=== PATIENT | female | born 1990 | race African-American/Black ===

== ENCOUNTER 2018-08-05 15:50 | Inpatient (IN) ==
--- NOTE | 2018-08-05 16:58 | P.HPOB ---
History of Present Illness Primary Care Physician: NOT REQUIRED Chief Complaint: SROM History of Present Illness: pt is with previous CS 9 y ago with SROM at 1500 today, clear fluids, irreg contractions Weeks Gestation:: 38 Para: 1 : 4 Review of Systems All other systems reviewed negative except as stated in HPI [facility] - Medical History Medical History: Medical History (Last Updated 08/05/18 @ 16:50 by Chacho Díaz MD) delivery delivered No significant active problems - Social History I have reviewed the patient's Social History: Yes - Tobacco History Second Hand Smoke Exposure: No Tobacco Use In Past 30 Days: No Smoking Status: Never smoker - Alcohol History How Often Do You Have a Drink Containing Alcohol: Never - Substance Use History Substance History: No History of Abuse - Travel History History of Recent Travel: No Recent Travel in the [facility] Within the Last 8 Weeks: No Recent Travel Out of the Country Within the Last 8 Weeks: No Medications and Allergies Allergies Allergy/AdvReac Type Severity Reaction Status Date / Time No Known Allergies Allergy Unknown none Uncoded 08/05/18 16:38 Home Medications Medication Instructions Recorded Confirmed Type [id number] acid 1 tab PO DAILY 08/05/18 08/05/18 History [PreNata] Exam Vital signs: Vital Signs 08/05/18 16:13 08/05/18 16:14 Temperature 98.6 F Pulse Rate 90 Respiratory Rate 18 Blood Pressure 123/66 Intake & Output 08/04/18 08/05/18 08/05/18 18:59 06:59 18:59 Weight 77.111 kg Narrative: GENERAL: Well-nourished, well-developed patient. SKIN: Warm and dry. HEAD: Normocephalic and atraumatic. EYES: No scleral icterus. No injection or drainage. ENT: No nasal drainage noted. Mucous membranes pink. Airway patent. NECK: Supple, trachea midline. No JVD. CARDIOVASCULAR: Regular rate and rhythm without murmurs, gallops, or rubs. RESPIRATORY: Breath sounds equal bilaterally. No accessory muscle use. BREASTS: Bilateral exam showed no masses , no retractions, no nipple discharge. ABDOMEN/GI: Abdomen soft, non-tender, bowel sounds present, no rebound, no guarding Gravid to [39-] weeks size Fundal Height: [39-] GENITOURINARY: External Genitalia: intact and normal in appearance BUS glands: [wnl] Cervix: [ft,25%,-3] Dilatation: [-] Effacement: [-] Station: [-] Presentation: [vx] Membranes: ruptured clear] Uterine Contractions: [irreg] FHT's: Category: [1] Baseline: [135] Reactive: [y] Variability: [moderate] Decels: [none] EXTREMITIES: No cyanosis or edema. BACK: Nontender without obvious deformity. No CVA tenderness. NEUROLOGICAL: Awake and alert. Motor and sensory grossly within normal limits. Five out of 5 muscle strength in all muscle groups. Normal speech. Assessment and Plan - Diagnosis (1) 38 weeks gestation of Code(s): Z3A.38 - 38 weeks gestation of Status: Acute (2) Previous section Code(s): Z98.891 - History of uterine scar from previous surgery Status: Acute - Plan as per dr colbert and pt wish anticipate gbs neg Discharge Plan - Discharge Disposition Patient Disposition: 30 Still Patient - Physicians Team ED Provider: Chacho Díaz Primary Care Provider: NOT REQUIRED, - Rxs /Orders / Referrals /Forms Prescriptions: No Action [id number] acid [PreNata] 29 mg iron- 1 mg Tablet,Chewable 1 tab PO DAILY - Discharge Instructions Print Language: Thai
[2018-08-05] MEDS ORDERED: Oxytocin 30 Units/500ml Premix 30 UNITS/500 ML BAG IV.SIG ONE (16:59)
[2018-08-05] MEDS ORDERED: Naloxone Inj 0.4 MG/ML Vial IV.PUSH PRN (16:59)
[2018-08-05] MEDS ORDERED: Sodium Chlor 0.9% Inj 500 ML IV.SIG PRN (16:59)
[2018-08-05] MEDS ORDERED: fentaNYL Citrate Inj 100 MCG/2 ML Ampul IV.PUSH PRN ×2 (16:59)
[2018-08-05] MEDS ORDERED: Sod Chloride 0.9% Inj 1,000 ML IV.CONT PRN (16:59)
[2018-08-05] MEDS ORDERED: Citric Acid/Sodium Citrate Liq 30 ML UDC PO SCH (17:00)
[2018-08-05 18:27] LABS: Baso % (Auto) 0.3 % (0.0-2.0); Eos # (Auto) 0.1 th/mm3 (0.0-0.4); Eos % (Auto) 0.6 % (0.0-4.0); Hematocrit 30.6 % (35.0-46.0); Hemoglobin 10.1 gm/dL (11.6-15.3); Lymph # (Auto) 1.4 th/mm3 (1.0-4.8); Lymph % (Auto) 13.1 % (9.0-44.0); Mean Corpuscular Hemoglobin 29.8 pg (27.0-34.0); Mean Corpuscular Volume 90.1 fL (80.0-100.0); Mean Platelet Volume 10.9 fL (7.0-11.0); Mono # (Auto) 1.1 th/mm3 (0.0-0.9); Mono % (Auto) 9.6 % (0.0-8.0); Neut # (Auto) 8.3 th/mm3 (1.8-7.7); Neut % (Auto) 76.4 % (16.0-70.0); Platelet Count 138 th/mm3 (150-450); Red Blood Count 3.39 mil/mm3 (4.00-5.30); Red Cell Distribution Width 13.8 % (11.6-17.2); White Blood Count 10.9 th/mm3 (4.0-11.0)
[2018-08-05 18:35] LABS: Amphetamine Urine With Conf Neg (Neg); Benzodiazepine Urine With Conf Neg (Neg)
[2018-08-05 18:38] LABS: Bacteria,Urine Occasional /hpf; Bilirubin,Urine Negative (Negative); Clarity,Urine Hazy (Clear); Color,Urine Yellow (Yellw/Straw); Glucose,Urine (UA) Negative (Negative); Leukocyte Esterase,Urine Moderate (Negative); Mucus,Urine Few /lpf (Occasional); Nitrite,Urine Negative (Negative); Specific Gravity,Urine 1.011 (1.002-1.035); Squamous Epithelial Cell,Urine 5 /hpf (0-5)
[2018-08-06] MEDS ORDERED: Oxytocin 30 Units/500ml Premix 30 UNITS/500 ML BAG IV.SIG PRN ×2 (08:05→22:15)
--- NOTE | 2018-08-06 08:05 | P.OBLABOR ---
Subjective Interval history: Frustrated that nothing occurred during the night and frightened by wording of consent. Having some moderate contractions but widely spaced. No fever, chills. GFM No bleeding. still leaking slight amount Objective Vital Signs: Vital Signs - 8 hr 08/06/18 00:21 08/06/18 02:30 08/06/18 04:54 Temperature 98.8 F 98.6 F 98.7 F Pulse Rate 87 89 Respiratory Rate 15 15 Blood Pressure 101/48 L 124/56 L 08/06/18 06:51 08/06/18 07:17 Temperature 99.0 F 98.5 F Pulse Rate 91 H Respiratory Rate 16 Blood Pressure 113/59 L Objective: EFW 7 1/2 pounds previously dilated to 5 cm with first section vertex 3/80/-2 forewater rupture pelvis clinically adequate poor abdominal muscle tone allows to hang over symphysis and would leave in bed with peanut no edema Weeks Gestation: 38 Patient Started Active Labor: No Medical Induction of Labor: No Artificial Rupture of Membrane: No Assessment and Plan - Diagnosis (1) SROM (spontaneous rupture of membranes) Status: Acute (2) 38 weeks gestation of Code(s): Z3A.38 - 38 weeks gestation of Status: Acute (3) Previous section Code(s): Z98.891 - History of uterine scar from previous surgery Status: Acute - Plan begin pitocin encourage epidural anticipate unless or maternal condition or preference determine otherwise reviewed risks, alternatives, benefits and her ability to change her mind.
[2018-08-06] MEDS: Prenatal Vit/Ca/Iron/Folic Acid Tablet PO SCH (10:05)
[2018-08-06] MEDS ORDERED: fentaNYL 2MCG-Bupiv 0.125% Epi 150 ML EPIDURAL ONE (10:18)
[2018-08-06] MEDS ORDERED: Lidocaine PF 1% Inj 5 ML Vial ONE (10:40)
[2018-08-06] MEDS ORDERED: Lidocaaine 1.5%/Epinephrine 1:200,000 PF Inj 5 ML Amp ONE (10:40)
[2018-08-06] MEDS ORDERED: Acetaminophen 325 MG Tablet PO PRN ×2 (13:41→17:14)
--- NOTE | 2018-08-06 13:44 | P.OBLABOR ---
Subjective Interval history: laying on left side with peanut ball in place on pitocin and has epidural no pain comfortable Objective Vital Signs: Vital Signs - 8 hr 08/06/18 06:51 08/06/18 07:17 08/06/18 09:30 Temperature 99.0 F 98.5 F 98.7 F Pulse Rate 91 H Respiratory Rate 16 Blood Pressure 113/59 L 08/06/18 09:32 08/06/18 10:55 08/06/18 10:59 Temperature Pulse Rate 88 86 87 Respiratory Rate 18 Blood Pressure 109/53 L 105/57 L 107/70 08/06/18 11:18 08/06/18 11:25 08/06/18 11:26 Temperature Pulse Rate 84 78 88 Respiratory Rate 18 Blood Pressure 102/54 L 113/63 96/70 L 08/06/18 11:40 08/06/18 11:45 08/06/18 11:57 Temperature Pulse Rate 94 H 93 H Respiratory Rate 20 Blood Pressure 118/61 08/06/18 12:00 08/06/18 12:01 08/06/18 12:15 Temperature 99.2 F Pulse Rate 86 85 Respiratory Rate Blood Pressure 112/63 117/64 08/06/18 12:28 08/06/18 12:30 08/06/18 12:46 Temperature Pulse Rate 89 163 H Respiratory Rate 20 Blood Pressure 113/65 105/52 L 08/06/18 13:00 08/06/18 13:16 08/06/18 13:30 Temperature 101.1 F H Pulse Rate 91 H 95 H Respiratory Rate 18 Blood Pressure 100/50 L 98/50 L Objective: 8/80/-2 temp 101.4 strip categoy 2 with mild tchycardia and decreased BTBV Assessment and Plan - Diagnosis (1) SROM (spontaneous rupture of membranes) Status: Acute (2) 38 weeks gestation of Code(s): Z3A.38 - 38 weeks gestation of Status: Acute (3) Previous section Code(s): Z98.891 - History of uterine scar from previous surgery Status: Acute - Plan begin pitocin encourage epidural anticipate unless or maternal condition or preference determine otherwise reviewed risks, alternatives, benefits and her ability to change her mind. 08/06/18 at 13:45 ancef and tylenol continue and anticipate after TOLAC
[2018-08-06] MEDS ORDERED: ceFAZolin 2 GM Premix Inj 2 GM/50 ML PIGGYBACK IV.SIG ONE (14:00)
[2018-08-06] MEDS ORDERED: fentaNYL 2MCG-Bupiv 0.125% Epi 150 ML EPIDURAL PRN (14:56)
[2018-08-06] MEDS ORDERED: fentaNYL Citrate Inj 100 MCG/2 ML Ampul EPIDURAL ONE (14:56)
--- NOTE | 2018-08-06 15:33 | P.OBLABOR ---
Subjective Interval history: Patient seen and examined at bedside. Comfortable. Denies any chills. Denies any pain. Antibiotics hung one hour ago. Last Temp 100.4 taken at 15:25. Previous Temp: 102.7 F taken at 14:42. Objective Vital Signs: Vital Signs - 8 hr 08/06/18 09:30 08/06/18 09:32 08/06/18 10:55 Temperature 98.7 F Pulse Rate 88 86 Respiratory Rate 18 Blood Pressure 109/53 L 105/57 L 08/06/18 10:59 08/06/18 11:18 08/06/18 11:25 Temperature Pulse Rate 87 84 78 Respiratory Rate 18 Blood Pressure 107/70 102/54 L 113/63 08/06/18 11:26 08/06/18 11:40 08/06/18 11:45 Temperature Pulse Rate 88 94 H 93 H Respiratory Rate Blood Pressure 96/70 L 118/61 08/06/18 11:57 08/06/18 12:00 08/06/18 12:01 Temperature 99.2 F Pulse Rate 86 Respiratory Rate 20 Blood Pressure 112/63 08/06/18 12:15 08/06/18 12:28 08/06/18 12:30 Temperature Pulse Rate 85 89 Respiratory Rate 20 Blood Pressure 117/64 113/65 08/06/18 12:46 08/06/18 13:00 08/06/18 13:16 Temperature Pulse Rate 163 H 91 H 95 H Respiratory Rate Blood Pressure 105/52 L 100/50 L 98/50 L 08/06/18 13:30 08/06/18 13:45 08/06/18 14:15 Temperature 101.1 F H Pulse Rate 96 H 101 H Respiratory Rate 18 20 20 Blood Pressure 107/70 129/98 H 08/06/18 14:16 08/06/18 14:30 08/06/18 14:42 Temperature 102.7 F H Pulse Rate 123 H 134 H Respiratory Rate Blood Pressure 98/64 L 125/64 08/06/18 14:45 08/06/18 15:15 08/06/18 15:22 Temperature Pulse Rate 112 H 110 H Respiratory Rate 20 Blood Pressure 103/55 L 112/55 L 08/06/18 15:25 Temperature 100.4 F H Pulse Rate Respiratory Rate Blood Pressure Objective: Pelvic Exam: Cervix: anterior Dilatation: 7 Effacement: 70 Station: -1 Presentation: cephalic Membranes: ruptured Uterine Contractions: q3 mins FHT's: Category: 2 Baseline: 190 Reactive: yes Variability: minimal Decels: Late decels Assessment and Plan - Plan 28 F at 38 weeks and 5 days admitted for SROM and irregular contractions. Became Febrile at 13:30. Started on Ancef and Tylenol. Cat 2 tracing. Minimal Variability. [place]/EFM: Tachycardia: Baseline 190s, Late Decels, Minimal Variability. Temp: 100.4 (Ancef hung one hour ago) - Start Amnioinfusion. - IUPC placed. -Tylenol given for Temp. -Anticipate C/section in 30 mins if maternal/ condition does not resolve. - reviewed risks, alternatives, benefits and her ability to change her mind. -Discussed with Dr. Blakely
[2018-08-06] MEDS ORDERED: Morphine Sulfate PF Inj 5 MG/10 ML Ampul ONE (15:57)
[2018-08-06] MEDS ORDERED: Lidocaine 2%/Epinephrine 1:200,000 PF Inj 20 ML Vial NERV BLOCK ONE (16:05)
[2018-08-06] MEDS ORDERED: Ketorolac Inj 30 MG/ML (IVP) Vial IV.PUSH ONE (16:05)
[2018-08-06] MEDS ORDERED: Carboprost Tromethamine Inj 250 MCG/ML Ampul IM ONE (16:45)
[2018-08-06 17:05] LABS: Cord Arterial Blood HCO3 23.7
[2018-08-06] MEDS ORDERED: Oxytocin 30 Units/500ml Premix 30 UNITS/500 ML BAG IV.SIG ONE (17:14)
[2018-08-06] MEDS ORDERED: Senna/Docusate Sodium 8.6/50 MG Tablet PO PRN (17:14)
[2018-08-06] MEDS ORDERED: Zolpidem Tartrate 5 MG Tablet PO PRN (17:14)
--- NOTE | 2018-08-06 17:48 | P.OBDELI ---
Procedure Note - Pre Op Diagnosis (1) tachycardia affecting care of mother, delivered (2) Maternal fever affecting labor (3) SROM (spontaneous rupture of membranes) (4) 38 weeks gestation of (5) Previous section - Post Op Diagnosis (1) Chorioamnionitis (2) SROM (spontaneous rupture of membranes) (3) 38 weeks gestation of (4) Previous section (5) tachycardia affecting care of mother, delivered (6) Maternal fever affecting labor Performed by: Candelaria Blakely MD Procedure: Repeat Low Transverse Section Indication for Delivery: Nonreassuring heart tracing Informed Consent Obtained: For anesthesia, For procedure Confirmed Correct: Patient, Procedure, Site, Time-out taken Anesthesia: Epidural Medication Prior to Procedure: As documented in eMAR Monitoring During Procedure: Blood pressure monitoring, gambling monitor, doppler, Pulse oximetry Urinary Catheter: Inserted using sterile technique, To dependent drainage Sterile Preparation: Duraprep, In usual fashion Position: Supine with wedge to right side - Operative Features Skin Incision: Pfannenstiel Uterine Incision: Low transverse w/knife / scissors Membranes Ruptured: Previously, Appearance of fluid (nasty with odor) Presentation: Occiput posterior Status of : Viable, Cord blood, Umbilical cord, Nursery present, Resuscitation required Placenta Delivered: Intact Medications: Antibiotics, Oxytocin, Other (hemobate) Estimated blood loss (mL): 500 Procedure Tolerated: Well Maternal Complications: Fever Maternal Condition: Stable Baby Complications: Other (acute rescusitation needed and successful) Baby Condition: Stable Procedure in Detail: dictated - Infant: Male Infant Male A Infant Delivery Date: 08/06/18 Delivery Time: 17:47 Weight: 3.515 kg Delivery of Infant: Assisted score (1 min): 1 score (5 min): 6 score (10 min): 9 (cord pH 7.24)
--- NOTE | 2018-08-06 18:44 | MP ---
cc: Candelaria Blakely MD DATE OF OPERATION: 08/06/2018 PREOPERATIVE DIAGNOSIS: Trial of labor after section with premature rupture of membranes at home with development of maternal fever, tachycardia and late decelerations. POSTOPERATIVE DIAGNOSES: 1. Premature rupture of membranes at home with development of maternal fever, tachycardia and late decelerations. 2. Chorioamnionitis. PROCEDURE PERFORMED: Repeat low transverse segment section. ANESTHESIA: Epidural with Duramorph. SURGEON: Candelaria Blakely MD MECHANICAL PLANNER: Dr. Rodriguez FINDINGS: The patient developed tachycardia with mom's elevation of temperature to 102. There were subtle lates noted. The fever was resolved with the mom with Tylenol, but the tachycardia and lates did not resolve. She did not change from a dilation of 7-8 over the course of 2 hours and a decision was made to proceed with a repeat section. She had been given 2 grams of Ancef at the onset of the fever. DESCRIPTION OF PROCEDURE: She was taken to the back. Her epidural was reinforced. She was prepped and draped in the dorsal supine position with weight off the vena cava. A Thomson catheter had already been in place. Sequential stockings were placed. A significant odor was noted to the perineum at this point. strip was reassuring in the operating room just before prepping and then a timeout was done with all in attendance. After assuring adequate analgesia, a Pfannenstiel incision was made through her old incision and carried down through to the rectus fascia. The rectus fascia was incised with the Bovie on cutting and then off the rectus muscle superiorly and inferiorly. The scarred rectus muscle in the midline was then entered sharply with care to avoid underlying structures and this was extended with care to avoid the bladder or any possible bowel. This was widened to allow access to the lower uterine segment, which was assessed and then Hulbert were used to make a bladder flap and then a knife was used to enter into the intrauterine cavity. The fluid was yellow, gold and very, very foul smelling. The infant was in LOP position, but it was an unstable lie and easily moved to transverse and eventually removed with a vacuum and fundal pressure. He had excellent cry on the abdomen, but he then became flaccid and we only waited 35 seconds, clamped the cord x2 and he was handed over to the neonatology team and attending. Cord gas and cord blood were obtained. His Apgars were 1 at one 6 at five and 9 at ten. Cord pH was 7.24. Then, the placenta was removed intact with a 3-vessel cord. Then, the uterus was exteriorized, cleaned with a lap sponge and closed with chromic in a running interlocking fashion. It was initially quite atonic and therefore, Hemabate was given. With massage and Hemabate, we got excellent response and the second layer of a horizontal imbricating layer of chromic was placed. The uterus was then placed back in the abdominal cavity and copious irrigation was performed. Then, the rectus muscle was approximated in a running non-interlocking fashion and the fascia was approximated with running Vicryl non-interlocking. The subcutaneous layer was closed with 3-0 plain and the skin was closed with 4-0 Vicryl on a Gordo needle. Estimated blood loss was 500 mL. Sponge, instrument and needle counts were correct. She tolerated the procedure well and went to the recovery room stable with her baby. MD MALATHI Deras/cathryn , 05:52 PM , 06:02 PM
[2018-08-06] MEDS ORDERED: Naloxone Inj 0.4 MG/ML Vial IV.PUSH PRN (19:22)
[2018-08-07 06:52] LABS: Baso % (Auto) 0.1 % (0.0-2.0); Hematocrit 27.3 % (35.0-46.0); Hemoglobin 8.8 gm/dL (11.6-15.3); Lymph # (Auto) 0.9 th/mm3 (1.0-4.8); Lymph % (Auto) 5.9 % (9.0-44.0); Mean Corpuscular HGB Conc 32.2 % (32.0-36.0); Mean Corpuscular Hemoglobin 29.3 pg (27.0-34.0); Mean Corpuscular Volume 90.9 fL (80.0-100.0); Mean Platelet Volume 11.7 fL (7.0-11.0); Mono # (Auto) 0.7 th/mm3 (0.0-0.9); Mono % (Auto) 4.6 % (0.0-8.0); Neut # (Auto) 13.4 th/mm3 (1.8-7.7); Neut % (Auto) 89.4 % (16.0-70.0); Platelet Count 135 th/mm3 (150-450); Red Blood Count 3.01 mil/mm3 (4.00-5.30); Red Cell Distribution Width 14.2 % (11.6-17.2)
[2018-08-07 07:51] LABS: Eosinophils 1 % (0-4); Lymphocytes 5 % (9-44); Metamyelocytes 1 % (0-1); Monocytes 2 % (0-8)
[2018-08-07 07:52] LABS: Ovalocytes 1+
--- NOTE | 2018-08-07 08:46 | P.PNOB ---
Subjective Post op day: 1 Interval history: Patient is a 28 year-old delivered at 38 weeks and 5 days. Patient is post op day 1 after c/section 2/2 chorioamnionitis. Patient's pain is well- controlled. AFVSS. She has been afebrile overnight. Patient reports eating and drinking without any nausea or vomiting. Patient reports minimal bleeding. Patient has passed gas but no bowel movements. Patient is walking without lower extremity pain or shortness of breath. She Denies any fevers, chills, CP, Shortness of breath, Ab pain, calf pain. Patient is breast-feeding. Objective Vital Signs/I&O: Vital Signs 08/06/18 09:30 08/06/18 09:32 08/06/18 10:55 Temperature 98.7 F Pulse Rate 88 86 Respiratory Rate 18 Blood Pressure 109/53 L 105/57 L 08/06/18 10:59 08/06/18 11:18 08/06/18 11:25 Temperature Pulse Rate 87 84 78 Respiratory Rate 18 Blood Pressure 107/70 102/54 L 113/63 08/06/18 11:26 08/06/18 11:40 08/06/18 11:45 Temperature Pulse Rate 88 94 H 93 H Respiratory Rate Blood Pressure 96/70 L 118/61 08/06/18 11:57 08/06/18 12:00 08/06/18 12:01 Temperature 99.2 F Pulse Rate 86 Respiratory Rate 20 Blood Pressure 112/63 08/06/18 12:15 08/06/18 12:28 08/06/18 12:30 Temperature Pulse Rate 85 89 Respiratory Rate 20 Blood Pressure 117/64 113/65 08/06/18 12:46 08/06/18 13:00 08/06/18 13:16 Temperature Pulse Rate 163 H 91 H 95 H Respiratory Rate Blood Pressure 105/52 L 100/50 L 98/50 L 08/06/18 13:30 08/06/18 13:45 08/06/18 14:15 Temperature 101.1 F H Pulse Rate 96 H 101 H Respiratory Rate 18 20 20 Blood Pressure 107/70 129/98 H 08/06/18 14:16 08/06/18 14:30 08/06/18 14:42 Temperature 102.7 F H Pulse Rate 123 H 134 H Respiratory Rate Blood Pressure 98/64 L 125/64 08/06/18 14:45 08/06/18 15:15 08/06/18 15:22 Temperature Pulse Rate 112 H 110 H Respiratory Rate 20 Blood Pressure 103/55 L 112/55 L 08/06/18 15:25 08/06/18 15:45 08/06/18 16:00 Temperature 100.4 F H Pulse Rate 108 H Respiratory Rate 20 20 Blood Pressure 112/52 L 08/06/18 17:30 08/06/18 17:39 08/06/18 17:57 Temperature 100.0 F H Pulse Rate 107 H 102 H 104 H Respiratory Rate 20 20 20 Blood Pressure 114/56 L 113/57 L 107/58 L 08/06/18 18:00 08/06/18 18:13 08/06/18 19:09 Temperature 98.6 F 98.8 F Pulse Rate 102 H 102 H Respiratory Rate 20 20 Blood Pressure 112/55 L 109/65 08/06/18 20:00 08/07/18 00:00 08/07/18 04:00 Temperature 98.7 F 98.4 F 98.5 F Pulse Rate 97 H 96 H 105 H Respiratory Rate 20 20 20 Blood Pressure 111/62 122/65 121/64 Intake & Output 08/06/18 08/07/18 08/07/18 18:59 06:59 18:59 Intake Total 1999 Balance 1999 Intake: IV 1999 LR 1000 mL Inj 1,000 ML @ 125 1000 / 1000 mls/hr IV.CONT .Q8H HOMERO Rx#: [id number] LR 1000 mL Inj 1,000 ML @ 3000 1000 / 1000 mls/hr IV.SIG UNSCH PRN Rx#: [id number] Result Diagrams: 08/07/18 06:05 Objective Remarks: GENERAL: Well-nourished, well-developed patient. CARDIOVASCULAR: Regular rate and rhythm without murmurs, gallops, or rubs. RESPIRATORY: Breath sounds equal bilaterally. No accessory muscle use. ABDOMEN/GI: Abdomen soft, non-tender, bowel sounds present. Incision: Clean, dry and intact. Fundus: Firm, non-tender below the umbilicus. GENITOURINARY: Light to moderate bleeding. EXTREMITIES: No cyanosis or edema, non-tender, without signs of DVT. Medications and IVs: Active Medications Acetaminophen (Tylenol) 650 mg PO Q4H PRN PRN Reason: TEMPERATURE > 100.5 F Last Admin: 08/06/18 14:09 Dose: 650 mg Acetaminophen (Tylenol) 650 mg PO Q6H PRN PRN Reason: PAIN SCALE 1 TO 2 Citric Acid/Sodium Citrate (Sodium Citrate/Citric Acid Liq) 30 ml PO [employer] [facility] Stop: 08/09/18 16:59 Diphenhydramine HCl (Benadryl) 50 mg PO Q6H PRN PRN Reason: MILD TO MODERATE ITCHING Stop: 08/07/18 19:21 Diphenhydramine HCl (Benadryl Inj) 25 mg IV.PUSH Q6H PRN PRN Reason: MILD TO MODERATE ITCHING Stop: 08/07/18 19:21 Diphtheria/Pertussis/Tetanus Vacc (Boostrix Vaccine Inj) 0.5 ml IM .ONCE ONE Stop: 08/07/18 16:01 Ephedrine Sulfate (Ephedrine/Ns Syringe) 10 mg IV.PUSH UNSCH PRN PRN Reason: SEE LABEL COMMENTS Stop: 08/07/18 14:56 Fentanyl Citrate (Fentanyl Inj) 50 mcg IV.PUSH Q1H PRN PRN Reason: Pain Scale 3 - 5 Fentanyl Citrate (Fentanyl Inj) 100 mcg IV.PUSH Q1H PRN PRN Reason: PAIN SCALE 6 TO 10 Last Admin: 08/06/18 08:29 Dose: 100 mcg Lactated Ringer's (Lr 1000 Ml Inj) 1,000 mls @ 125 mls/hr IV.CONT .Q8H [facility] Last Admin: 08/07/18 06:46 Dose: Not Given Lactated Ringer's (Lr 1000 Ml Inj) 1,000 mls @ 3,000 mls/hr IV.SIG UNSCH PRN PRN Reason: compromise or epidural Last Admin: 08/06/18 12:41 Dose: 3,000 mls/hr Sodium Chloride (Ns Inj) 500 mls @ 1,000 mls/hr IV.SIG UNSCH PRN PRN Reason: SEE LABEL COMMENTS Sodium Chloride (Ns Inj) 1,000 mls @ 100 mls/hr IV.CONT .Q10H PRN PRN Reason: SEE LABEL COMMENTS Last Admin: 08/06/18 15:20 Dose: 100 mls/hr Oxytocin (Pitocin 30 Units/Ns 500 Ml Premix) 30 units in 500 mls @ 2 mls/hr IV.SIG TITRATE PRN; Protocol PRN Reason: For induction of labor Last Admin: 08/06/18 10:06 Dose: 2 milliunit/min, 2 mls/hr Fentanyl/Bupivacaine/Sodium Chlor (Fentanyl 2 Mcg-Bupiv 0.125% Epi) 150 mls @ 10 mls/hr EPIDURAL PRN PRN PRN Reason: for Labor Pain Lactated Ringer's (Lr 1000 Ml Inj) 1,000 mls @ 100 mls/hr IV.CONT .Q10H [facility] Stop: 08/07/18 18:14 Last Admin: 08/07/18 02:00 Dose: 100 mls/hr Oxytocin (Pitocin 30 Units/Ns 500 Ml Premix) 30 units in 500 mls @ 100 mls/hr IV.SIG UNSCH PRN PRN Reason: Heavy bleeding Ibuprofen (Motrin) 800 mg PO Q8H PRN PRN Reason: cramping Iron Sucrose (Venofer Inj) 200 mg IV.PUSH ONCE ONE Stop: 08/07/18 09:01 Lidocaine HCl (Xylocaine 1% Inj) 0.1 ml I-DERMAL PRN PRN PRN Reason: For IV start Stop: 08/08/18 16:58 Lidocaine HCl (Xylocaine 1% Inj) 10 ml INFILTRATN PRN PRN PRN Reason: For episiotomy repair Stop: 08/07/18 16:58 Measles/Mumps/Rubella Vaccine Live (M-M-R Ii Vaccine Inj) 0.5 ml SQ .ONCE ONE Stop: 08/07/18 16:01 Mineral Oil (Muri-Lube Oil) 10 ml TOPICAL PRN PRN PRN Reason: PRN perineal massage Miscellaneous Information (Misc Information) 1 each OTHER UNSCH PRN PRN Reason: SEE LABEL COMMENTS Stop: 08/07/18 14:56 Miscellaneous Information (Misc Information) 1 each OTHER UNSCH PRN PRN Reason: SEE LABEL COMMENTS Stop: 08/07/18 14:56 Miscellaneous Information (Misc Nursing Information) 1 each OTHER UNSCH PRN PRN Reason: SEE LABEL COMMENTS Stop: 08/07/18 19:21 Miscellaneous Information (Misc Nursing Information) 1 each OTHER UNSCH PRN PRN Reason: SEE LABEL COMMENTS Stop: 08/07/18 19:21 Naloxone HCl (Narcan Inj) 0.1 mg IV.PUSH Q2M PRN PRN Reason: for opiate reversal Naloxone HCl (Narcan Inj) 0.4 mg IV.PUSH UNSCH PRN PRN Reason: SEE LABEL COMMENTS Stop: 08/07/18 19:21 Oxycodone/Acetaminophen (Percocet 5/325 Mg) 1 tab PO Q4H PRN PRN Reason: PAIN SCALE 3 TO 5 Oxycodone/Acetaminophen (Percocet 5/325 Mg) 2 tab PO Q4H PRN PRN Reason: PAIN SCALE 6 TO 10 Vit/Calcium/Iron/Folic Ac (Stuartnatal Plus 3) 1 tab PO DAILY [facility] Last Admin: 08/06/18 10:05 Dose: 1 tab Senna/Docusate Sodium (Valeria-Colace) 2 tab PO Q12H PRN PRN Reason: CONSTIPATION Sodium Chloride (Ns Flush) 2 ml IV.FLUSH BID [facility] Last Admin: 08/07/18 06:44 Dose: Not Given Sodium Chloride (Ns Flush) 2 ml IV.FLUSH PRN PRN PRN Reason: FLUSH AFTER USING IV ACCESS Zolpidem Tartrate (Ambien) 5 mg PO HS PRN PRN Reason: INSOMNIA Assessment and Plan - Plan Patient is a 28 year-old delivered at 38 weeks and 5 days. Patient is postop day 1 after c/section. Afebrile Overnight. VSS. Continue to Monitor. Continue routine care. Motrin and Percocet when necessary for pain. Encourage OOB Hb:8.8. Venofer Added. Patient confirms minimal bleeding. Continue to monitor. Pelvic rest for 6 weeks will need follow-up appointment at that time. Follow up with Dr. Blakely in 1/2 weeks for incision check. appropriately. Discussed with Dr. Blakely
[2018-08-07] MEDS ORDERED: Iron Sucrose Inj 100 MG/5 ML Vial IV.PUSH ONE (09:00)
[2018-08-07] MEDS ORDERED: Iron Sucrose Inj 200 MG in Sodium Chlor 0.9% Inj 100 ML IV.SIG ONE (11:00)
[2018-08-07] MEDS: Prenatal Vit/Ca/Iron/Folic Acid Tablet PO SCH (11:32)
[2018-08-07] MEDS: Ibuprofen Liq 100 MG/5 ML UDC PO PRN ×2 (14:54→23:23)
[2018-08-07] MEDS ORDERED: Measles/Mumps/Rubella Vaccine Inj 0.5 ML Vial SQ ONE (16:00)
[2018-08-07] MEDS ORDERED: Diphtheria/Tetanus/Pertussis Vaccine Inj 0.5 ML Syringe IM ONE (16:00)
--- NOTE | 2018-08-07 18:01 | P.PNOB ---
Subjective Post op day: 1 Interval history: resting comfortably with family and friends in room nursing baby has had several fevers today and will need antibiotics (significant chorioamniitis at delivery) no excessive bleeding pain controlled concerned about swelling in legs Objective Vital Signs/I&O: Vital Signs 08/06/18 18:00 08/06/18 18:13 08/06/18 19:09 Temperature 98.6 F 98.8 F Pulse Rate 102 H 102 H Respiratory Rate 20 20 Blood Pressure 112/55 L 109/65 08/06/18 20:00 08/07/18 00:00 08/07/18 04:00 Temperature 98.7 F 98.4 F 98.5 F Pulse Rate 97 H 96 H 105 H Respiratory Rate 20 20 20 Blood Pressure 111/62 122/65 121/64 08/07/18 08:00 08/07/18 11:46 08/07/18 15:48 Temperature 98.7 F 100.6 F H Pulse Rate 104 H 113 H 119 H Respiratory Rate 18 20 18 Blood Pressure 115/57 L 115/58 L 106/62 Intake & Output 08/06/18 08/07/18 08/07/18 18:59 06:59 18:59 Intake Total 3000 / 3000 Balance 3000 / 3000 Intake: IV 3000 / 3000 LR 1000 mL Inj 1,000 ML @ 125 2000 / 2000 mls/hr IV.CONT .Q8H [facility] Rx#: [id number] LR 1000 mL Inj 1,000 ML @ 3000 1000 / 1000 mls/hr IV.SIG UNSCH PRN Rx#: [id number] Result Diagrams: 08/07/18 06:05 Other Results: received venofer for low H/H Objective Remarks: GENERAL: Well-nourished, well-developed patient. CARDIOVASCULAR: Regular rate and rhythm without murmurs, gallops, or rubs. RESPIRATORY: Breath sounds equal bilaterally. No accessory muscle use. ABDOMEN/GI: Abdomen soft, non-tender, bowel sounds present. Incision: Clean, dry and intact. Fundus: Firm, non-tender at umbilicus. GENITOURINARY: Light to moderate bleeding. EXTREMITIES: No cyanosis Mild edema noted, non-tender, without signs of DVT. Medications and IVs: Active Medications Acetaminophen (Tylenol) 650 mg PO Q6H PRN PRN Reason: PAIN SCALE 1 TO 2 Acetaminophen (Tylenol Liq) 650 mg PO Q4H PRN PRN Reason: TEMP > 100.4 Last Admin: 08/07/18 14:54 Dose: 650 mg Citric Acid/Sodium Citrate (Sodium Citrate/Citric Acid Liq) 30 ml PO ORAL SURGERY TECHNICIAN [facility] Stop: 08/09/18 16:59 Diphenhydramine HCl (Benadryl) 50 mg PO Q6H PRN PRN Reason: MILD TO MODERATE ITCHING Stop: 08/07/18 19:21 Diphenhydramine HCl (Benadryl Inj) 25 mg IV.PUSH Q6H PRN PRN Reason: MILD TO MODERATE ITCHING Stop: 08/07/18 19:21 Fentanyl Citrate (Fentanyl Inj) 50 mcg IV.PUSH Q1H PRN PRN Reason: Pain Scale 3 - 5 Fentanyl Citrate (Fentanyl Inj) 100 mcg IV.PUSH Q1H PRN PRN Reason: PAIN SCALE 6 TO 10 Last Admin: 08/06/18 08:29 Dose: 100 mcg Lactated Ringer's (Lr 1000 Ml Inj) 1,000 mls @ 125 mls/hr IV.CONT .Q8H [facility] Last Admin: 08/07/18 14:29 Dose: 125 mls/hr Lactated Ringer's (Lr 1000 Ml Inj) 1,000 mls @ 3,000 mls/hr IV.SIG UNSCH PRN PRN Reason: compromise or epidural Last Admin: 08/06/18 12:41 Dose: 3,000 mls/hr Sodium Chloride (Ns Inj) 500 mls @ 1,000 mls/hr IV.SIG UNSCH PRN PRN Reason: SEE LABEL COMMENTS Sodium Chloride (Ns Inj) 1,000 mls @ 100 mls/hr IV.CONT .Q10H PRN PRN Reason: SEE LABEL COMMENTS Last Admin: 08/06/18 15:20 Dose: 100 mls/hr Oxytocin (Pitocin 30 Units/Ns 500 Ml Premix) 30 units in 500 mls @ 2 mls/hr IV.SIG TITRATE PRN; Protocol PRN Reason: For induction of labor Last Admin: 08/06/18 10:06 Dose: 2 milliunit/min, 2 mls/hr Fentanyl/Bupivacaine/Sodium Chlor (Fentanyl 2 Mcg-Bupiv 0.125% Epi) 150 mls @ 10 mls/hr EPIDURAL PRN PRN PRN Reason: for Labor Pain Lactated Ringer's (Lr 1000 Ml Inj) 1,000 mls @ 100 mls/hr IV.CONT .Q10H [facility] Stop: 08/07/18 18:14 Last Admin: 08/07/18 02:00 Dose: 100 mls/hr Oxytocin (Pitocin 30 Units/Ns 500 Ml Premix) 30 units in 500 mls @ 100 mls/hr IV.SIG UNSCH PRN PRN Reason: Heavy bleeding Ibuprofen (Motrin Liq) 800 mg PO Q8H PRN PRN Reason: CRAMPING Last Admin: 08/07/18 14:54 Dose: 800 mg Lidocaine HCl (Xylocaine 1% Inj) 0.1 ml I-DERMAL PRN PRN PRN Reason: For IV start Stop: 08/08/18 16:58 Mineral Oil (Muri-Lube Oil) 10 ml TOPICAL PRN PRN PRN Reason: PRN perineal massage Miscellaneous Information ([facility] Nursing Information) 1 each OTHER UNSCH PRN PRN Reason: SEE LABEL COMMENTS Stop: 08/07/18 19:21 Miscellaneous Information ([facility] Nursing Information) 1 each OTHER UNSCH PRN PRN Reason: SEE LABEL COMMENTS Stop: 08/07/18 19:21 Naloxone HCl (Narcan Inj) 0.1 mg IV.PUSH Q2M PRN PRN Reason: for opiate reversal Naloxone HCl (Narcan Inj) 0.4 mg IV.PUSH UNSCH PRN PRN Reason: SEE LABEL COMMENTS Stop: 08/07/18 19:21 Oxycodone/Acetaminophen (Percocet 5/325 Mg) 1 tab PO Q4H PRN PRN Reason: PAIN SCALE 3 TO 5 Oxycodone/Acetaminophen (Percocet 5/325 Mg) 2 tab PO Q4H PRN PRN Reason: PAIN SCALE 6 TO 10 Vit/Calcium/Iron/Folic Ac (Stuartnatal Plus 3) 1 tab PO DAILY [facility] Last Admin: 08/07/18 11:32 Dose: 1 tab Senna/Docusate Sodium (Valeria-Colace) 2 tab PO Q12H PRN PRN Reason: CONSTIPATION Sodium Chloride (Ns Flush) 2 ml IV.FLUSH BID [facility] Last Admin: 08/07/18 12:06 Dose: Not Given Sodium Chloride (Ns Flush) 2 ml IV.FLUSH PRN PRN PRN Reason: FLUSH AFTER USING IV ACCESS Zolpidem Tartrate (Ambien) 5 mg PO HS PRN PRN Reason: INSOMNIA Assessment and Plan - Diagnosis (1) SROM (spontaneous rupture of membranes) Status: Acute (2) 38 weeks gestation of Code(s): Z3A.38 - 38 weeks gestation of Status: Acute (3) Previous section Code(s): Z98.891 - History of uterine scar from previous surgery Status: Acute - Plan Patient is a 28 year-old delivered at 38 weeks and 5 days. Patient is postop day 1 after c/section. Afebrile Overnight. VSS. Continue to Monitor. Continue routine care. Motrin and Percocet when necessary for pain. Encourage OOB Hb:8.8. Venofer Added. Patient confirms minimal bleeding. Continue to monitor. Pelvic rest for 6 weeks will need follow-up appointment at that time. Follow up with Dr. Blakely in 1/2 weeks for incision check. appropriately. Discussed with Dr. Blakely POD 1 08/07/18 17:45 Will administer unasyn 1.5 gm every 6 hours for three doses repeat CBC in am
[2018-08-07] MEDS: Ampicillin/Sulbactam Inj 1,500 MG in Sodium Chloride 0.9% Inj 100 ML IV.SIG SCH (20:20)
[2018-08-08] MEDS: Ampicillin/Sulbactam Inj 1,500 MG in Sodium Chloride 0.9% Inj 100 ML IV.SIG SCH ×4 (01:43→20:44)
[2018-08-08 06:05] LABS: Baso % (Auto) 0.1 % (0.0-2.0); Eos # (Auto) 0.1 th/mm3 (0.0-0.4); Eos % (Auto) 0.4 % (0.0-4.0); Hematocrit 22.3 % (35.0-46.0); Hemoglobin 7.4 gm/dL (11.6-15.3); Lymph % (Auto) 6.7 % (9.0-44.0); Mean Corpuscular HGB Conc 33.3 % (32.0-36.0); Mean Corpuscular Hemoglobin 29.8 pg (27.0-34.0); Mean Corpuscular Volume 89.4 fL (80.0-100.0); Mean Platelet Volume 11.4 fL (7.0-11.0); Mono # (Auto) 0.5 th/mm3 (0.0-0.9); Mono % (Auto) 3.7 % (0.0-8.0); Neut # (Auto) 13.2 th/mm3 (1.8-7.7); Neut % (Auto) 89.1 % (16.0-70.0); Platelet Count 122 th/mm3 (150-450); Red Cell Distribution Width 13.9 % (11.6-17.2); White Blood Count 14.8 th/mm3 (4.0-11.0)
[2018-08-08] MEDS: Ibuprofen Liq 100 MG/5 ML UDC PO PRN ×2 (07:43→16:02)
--- NOTE | 2018-08-08 08:02 | P.PNOB ---
Subjective Post op day: 2 Interval history: last temp 100.6 at 11 am 08/07/18, on unasyn for chorio, +flatus Objective Vital Signs/I&O: Vital Signs 08/07/18 11:46 08/07/18 15:48 08/07/18 20:00 Temperature 100.6 F H 99.0 F Pulse Rate 113 H 119 H 114 H Respiratory Rate 20 18 20 Blood Pressure 115/58 L 106/62 107/56 L 08/08/18 00:00 08/08/18 03:58 08/08/18 07:59 Temperature 98.0 F 98.1 F 97.6 F Pulse Rate 105 H 100 H 88 Respiratory Rate 20 20 20 Blood Pressure 100/50 L 93/60 L 100/58 L Intake & Output 08/07/18 08/08/18 08/08/18 18:59 06:59 18:59 Intake Total 200 / 200 Balance 200 / 200 Intake: IV 200 / 200 Unasyn Inj 1,500 MG In NS Inj 200 / 200 100 ML @ 200 mls/hr IV.SIG Q6H [facility] Rx#:[id number] Result Diagrams: 08/08/18 05:33 Objective Remarks: GENERAL: Well-nourished, well-developed patient. CARDIOVASCULAR: Regular rate and rhythm without murmurs, gallops, or rubs. RESPIRATORY: Breath sounds equal bilaterally. No accessory muscle use. ABDOMEN/GI: Abdomen soft, non-tender, bowel sounds present. Incision: Clean, dry and intact. Fundus: Firm, non-tender at umbilicus. GENITOURINARY: Light to moderate bleeding. EXTREMITIES: No cyanosis or edema, non-tender, without signs of DVT. Medications and IVs: Active Medications Acetaminophen (Tylenol) 650 mg PO Q6H PRN PRN Reason: PAIN SCALE 1 TO 2 Acetaminophen (Tylenol Liq) 650 mg PO Q4H PRN PRN Reason: TEMP > 100.4 Last Admin: 08/08/18 07:44 Dose: 650 mg Citric Acid/Sodium Citrate (Sodium Citrate/Citric Acid Liq) 30 ml PO [employer]PERATIONS SPECIALIST [facility] Stop: 08/09/18 16:59 Fentanyl Citrate (Fentanyl Inj) 50 mcg IV.PUSH Q1H PRN PRN Reason: Pain Scale 3 - 5 Fentanyl Citrate (Fentanyl Inj) 100 mcg IV.PUSH Q1H PRN PRN Reason: PAIN SCALE 6 TO 10 Last Admin: 08/06/18 08:29 Dose: 100 mcg Lactated Ringer's (Lr 1000 Ml Inj) 1,000 mls @ 125 mls/hr IV.CONT .Q8H [facility] Last Admin: 08/08/18 03:32 Dose: Not Given Lactated Ringer's (Lr 1000 Ml Inj) 1,000 mls @ 3,000 mls/hr IV.SIG UNSCH PRN PRN Reason: compromise or epidural Last Admin: 08/06/18 12:41 Dose: 3,000 mls/hr Sodium Chloride (Ns Inj) 500 mls @ 1,000 mls/hr IV.SIG UNSCH PRN PRN Reason: SEE LABEL COMMENTS Sodium Chloride (Ns Inj) 1,000 mls @ 100 mls/hr IV.CONT .Q10H PRN PRN Reason: SEE LABEL COMMENTS Last Admin: 08/06/18 15:20 Dose: 100 mls/hr Oxytocin (Pitocin 30 Units/Ns 500 Ml Premix) 30 units in 500 mls @ 2 mls/hr IV.SIG TITRATE PRN; Protocol PRN Reason: For induction of labor Last Admin: 08/06/18 10:06 Dose: 2 milliunit/min, 2 mls/hr Fentanyl/Bupivacaine/Sodium Chlor (Fentanyl 2 Mcg-Bupiv 0.125% Epi) 150 mls @ 10 mls/hr EPIDURAL PRN PRN PRN Reason: for Labor Pain Oxytocin (Pitocin 30 Units/Ns 500 Ml Premix) 30 units in 500 mls @ 100 mls/hr IV.SIG UNSCH PRN PRN Reason: Heavy bleeding Ampicillin Sodium/Sulbactam Sodium 1,500 mg/ Sodium Chloride 100 mls @ 200 mls/ hr IV.SIG Q6H [facility] Last Admin: 08/08/18 07:44 Dose: 200 mls/hr Ibuprofen (Motrin Liq) 800 mg PO Q8H PRN PRN Reason: CRAMPING Last Admin: 08/08/18 07:43 Dose: 800 mg Lidocaine HCl (Xylocaine 1% Inj) 0.1 ml I-DERMAL PRN PRN PRN Reason: For IV start Stop: 08/08/18 16:58 Mineral Oil (Muri-Lube Oil) 10 ml TOPICAL PRN PRN PRN Reason: PRN perineal massage Naloxone HCl (Narcan Inj) 0.1 mg IV.PUSH Q2M PRN PRN Reason: for opiate reversal Oxycodone/Acetaminophen (Percocet 5/325 Mg) 1 tab PO Q4H PRN PRN Reason: PAIN SCALE 3 TO 5 Oxycodone/Acetaminophen (Percocet 5/325 Mg) 2 tab PO Q4H PRN PRN Reason: PAIN SCALE 6 TO 10 Vit/Calcium/Iron/Folic Ac (Stuartnatal Plus 3) 1 tab PO DAILY [facility] Last Admin: 08/07/18 11:32 Dose: 1 tab Senna/Docusate Sodium (Valeria-Colace) 2 tab PO Q12H PRN PRN Reason: CONSTIPATION Last Admin: 08/07/18 21:32 Dose: 2 tab Sodium Chloride (Ns Flush) 2 ml IV.FLUSH BID [facility] Last Admin: 08/07/18 20:21 Dose: Not Given Sodium Chloride (Ns Flush) 2 ml IV.FLUSH PRN PRN PRN Reason: FLUSH AFTER USING IV ACCESS Last Admin: 08/07/18 21:32 Dose: 2 ml Zolpidem Tartrate (Ambien) 5 mg PO HS PRN PRN Reason: INSOMNIA Assessment and Plan - Diagnosis (1) SROM (spontaneous rupture of membranes) Status: Acute (2) 38 weeks gestation of Code(s): Z3A.38 - 38 weeks gestation of Status: Acute (3) Previous section Code(s): Z98.891 - History of uterine scar from previous surgery Status: Acute (4) delivery delivered Code(s): O82 - Encounter for delivery without indication Status: Acute (5) Chorioamnionitis Code(s): O41.1290 - Chorioamnionitis, unspecified trimester, not applicable or unspecified Status: Acute - Plan Patient is a 28 year-old delivered at 38 weeks and 5 days. Patient is postop day 2 after c/section. Afebrile Overnight. VSS. Continue to Monitor. Continue routine care. Motrin and Percocet when necessary for pain. Encourage OOB Hb:8.8. Venofer Added. Patient confirms minimal bleeding. Continue to monitor. Pelvic rest for 6 weeks will need follow-up appointment at that time. Follow up with Dr. Blakely in 1/2 weeks for incision check. appropriately. Discussed with Dr. Blakely POD 1 08/07/18 17:45 Will administer unasyn 1.5 gm every 6 hours for three doses repeat CBC in am POD #2 doing well, afebrile on unasyn d/c home in am Discharge Planning: routine - Attending Attestation pt seen by me
[2018-08-08] MEDS: Prenatal Vit/Ca/Iron/Folic Acid Tablet PO SCH (17:00)
[2018-08-09] MEDS: Ampicillin/Sulbactam Inj 1,500 MG in Sodium Chloride 0.9% Inj 100 ML IV.SIG SCH ×2 (02:25→08:47)
[2018-08-09] MEDS: Ibuprofen Liq 100 MG/5 ML UDC PO PRN ×2 (02:26→10:39)
[2018-08-09 08:24] VITALS: BP 100/62; PULSE 90; RESP 20; TEMP 97.9
--- NOTE | 2018-08-09 08:47 | P.PNOB ---
Subjective Post op day: 3 Interval history: POD#3, Doing well, pain well controlled; Afebrile, breast feeding well. Objective Vital Signs/I&O: Vital Signs 08/08/18 20:00 08/09/18 08:00 Temperature 98.6 F 97.9 F Pulse Rate 95 H 90 Respiratory Rate 18 20 Blood Pressure 100/56 L 100/62 Intake & Output 08/08/18 08/09/18 08/09/18 18:59 06:59 18:59 Intake Total 100 / 100 200 / 200 100 / 100 Balance 100 / 100 200 / 200 100 / 100 Intake: IV 100 / 100 200 / 200 100 / 100 Unasyn Inj 1,500 MG In NS Inj 100 / 100 200 / 200 100 / 100 100 ML @ 200 mls/hr IV.SIG Q6H [facility] Rx#:[id number] Result Diagrams: 08/08/18 05:33 Objective Remarks: GENERAL: Well-nourished, well-developed patient. CARDIOVASCULAR: Regular rate and rhythm without murmurs, gallops, or rubs. RESPIRATORY: Breath sounds equal bilaterally. No accessory muscle use. ABDOMEN/GI: Abdomen soft, non-tender, bowel sounds present. Incision: Clean, dry and intact. Fundus: Firm, non-tender at umbilicus. GENITOURINARY: Light to moderate bleeding. EXTREMITIES: No cyanosis or edema, non-tender, without signs of DVT. Medications and IVs: Active Medications Acetaminophen (Tylenol) 650 mg PO Q6H PRN PRN Reason: PAIN SCALE 1 TO 2 Acetaminophen (Tylenol Liq) 650 mg PO Q4H PRN PRN Reason: TEMP > 100.4 Last Admin: 08/08/18 20:45 Dose: 350 mg Citric Acid/Sodium Citrate (Sodium Citrate/Citric Acid Liq) 30 ml PO [employer]YW[employer]IP[employer] HELPER [facility] Stop: 08/09/18 16:59 Fentanyl Citrate (Fentanyl Inj) 50 mcg IV.PUSH Q1H PRN PRN Reason: Pain Scale 3 - 5 Fentanyl Citrate (Fentanyl Inj) 100 mcg IV.PUSH Q1H PRN PRN Reason: PAIN SCALE 6 TO 10 Last Admin: 08/06/18 08:29 Dose: 100 mcg Lactated Ringer's (Lr 1000 Ml Inj) 1,000 mls @ 125 mls/hr IV.CONT .Q8H [facility] Last Admin: 08/09/18 02:17 Dose: Not Given Lactated Ringer's (Lr 1000 Ml Inj) 1,000 mls @ 3,000 mls/hr IV.SIG UNSCH PRN PRN Reason: compromise or epidural Last Admin: 08/06/18 12:41 Dose: 3,000 mls/hr Sodium Chloride (Ns Inj) 500 mls @ 1,000 mls/hr IV.SIG UNSCH PRN PRN Reason: SEE LABEL COMMENTS Sodium Chloride (Ns Inj) 1,000 mls @ 100 mls/hr IV.CONT .Q10H PRN PRN Reason: SEE LABEL COMMENTS Last Admin: 08/06/18 15:20 Dose: 100 mls/hr Oxytocin (Pitocin 30 Units/Ns 500 Ml Premix) 30 units in 500 mls @ 2 mls/hr IV.SIG TITRATE PRN; Protocol PRN Reason: For induction of labor Last Admin: 08/06/18 10:06 Dose: 2 milliunit/min, 2 mls/hr Fentanyl/Bupivacaine/Sodium Chlor (Fentanyl 2 Mcg-Bupiv 0.125% Epi) 150 mls @ 10 mls/hr EPIDURAL PRN PRN PRN Reason: for Labor Pain Oxytocin (Pitocin 30 Units/Ns 500 Ml Premix) 30 units in 500 mls @ 100 mls/hr IV.SIG UNSCH PRN PRN Reason: Heavy bleeding Ampicillin Sodium/Sulbactam Sodium 1,500 mg/ Sodium Chloride 100 mls @ 200 mls/ hr IV.SIG Q6H [facility] Last Infusion: 08/09/18 07:18 Dose: Infused Ibuprofen (Motrin Liq) 800 mg PO Q8H PRN PRN Reason: CRAMPING Last Admin: 08/09/18 02:26 Dose: 800 mg Mineral Oil (Muri-Lube Oil) 10 ml TOPICAL PRN PRN PRN Reason: PRN perineal massage Naloxone HCl (Narcan Inj) 0.1 mg IV.PUSH Q2M PRN PRN Reason: for opiate reversal Oxycodone/Acetaminophen (Percocet 5/325 Mg) 1 tab PO Q4H PRN PRN Reason: PAIN SCALE 3 TO 5 Last Admin: 08/08/18 20:46 Dose: 1 tab Oxycodone/Acetaminophen (Percocet 5/325 Mg) 2 tab PO Q4H PRN PRN Reason: PAIN SCALE 6 TO 10 Last Admin: 08/09/18 02:26 Dose: 2 tab Vit/Calcium/Iron/Folic Ac (Stuartnatal Plus 3) 1 tab PO DAILY [facility] Last Admin: 08/08/18 17:00 Dose: Not Given Senna/Docusate Sodium (Valeria-Colace) 2 tab PO Q12H PRN PRN Reason: CONSTIPATION Last Admin: 08/07/18 21:32 Dose: 2 tab Sodium Chloride (Ns Flush) 2 ml IV.FLUSH BID [facility] Last Admin: 08/09/18 02:18 Dose: 2 ml Sodium Chloride (Ns Flush) 2 ml IV.FLUSH PRN PRN PRN Reason: FLUSH AFTER USING IV ACCESS Last Admin: 08/09/18 02:27 Dose: 2 ml Zolpidem Tartrate (Ambien) 5 mg PO HS PRN PRN Reason: INSOMNIA Assessment and Plan - Diagnosis (1) SROM (spontaneous rupture of membranes) Status: Acute (2) 38 weeks gestation of Code(s): Z3A.38 - 38 weeks gestation of Status: Acute (3) Previous section Code(s): Z98.891 - History of uterine scar from previous surgery Status: Acute (4) delivery delivered Code(s): O82 - Encounter for delivery without indication Status: Acute (5) Chorioamnionitis Code(s): O41.1290 - Chorioamnionitis, unspecified trimester, not applicable or unspecified Status: Acute - Plan Patient is a 28 year-old delivered at 38 weeks and 5 days. Patient is postop day 2 after c/section. Afebrile Overnight. VSS. Continue to Monitor. Continue routine care. Motrin and Percocet when necessary for pain. Encourage OOB Hb:8.8. Venofer Added. Patient confirms minimal bleeding. Continue to monitor. Pelvic rest for 6 weeks will need follow-up appointment at that time. Follow up with Dr. Blakely in 1/2 weeks for incision check. appropriately. Discussed with Dr. Blakely POD 1 08/07/18 17:45 Will administer unasyn 1.5 gm every 6 hours for three doses repeat CBC in am POD #2 doing well, afebrile on unasyn d/c home in am. POD#3 ; Doing well, plan discharge today; will return to office 1 week Discharge Planning: routine
[2018-08-09] MEDS: Prenatal Vit/Ca/Iron/Folic Acid Tablet PO SCH (08:50)
== END 2018-08-09 13:20 | disposition home or self-care (01) ==
LOC: HOBED 15:50 → H2E 16:59 → H1EA 08-06 18:38
PROVIDERS: ADMIT Obstetrics & Gynecology; ATTEND Obstetrics & Gynecology